=== PATIENT | male | born 1985 | race Caucasian/White ===

== ENCOUNTER → 2017-02-26 | Outpatient (CLI) | payer MEDICAID ==
--- NOTE | 2017-02-27 07:04 | US ---
EXAMINATION TYPE: US scrotum with doppler. Grayscale and color Doppler Duplex imaging performed of t he scrotum. DATE OF EXAM: 02/26/2017 COMPARISON: NONE CLINICAL HISTORY: E29.9 Testicular dysfunction, unspecified. Infertility, no pain, no swelling EXAM MEASUREMENTS: TESTICLES: Right Testicle: 5.8 x 3.4 x 2.8 cm Left Testicle: 5.9 x 3.7 x 3.1 cm EPIDIDYMIS HEAD: Right Epididymis: 1.5 cm, 1.1cm cyst with internal mobile debris Left Epididymis: 1.0 cm Doppler performed to assess for testicular vascularity; good bilateral color flow and waveforms are s een. There is no evidence of testicular torsion. Presence of hydroceles: no Presence of varicoceles: no IMPRESSION: Small left epididymal cyst, otherwise unremarkable scrotal ultrasound.
== END | disposition home or self-care (01) ==
LOC: RADUSWWP 15:28
PROVIDERS: ATTEND Obstetrics & Gynecology Reproductive Endocrinology
DX: N50.3 Cyst of epididymis (principal)
CPT/HCPCS: 76870; 93975

== ENCOUNTER 2020-01-10 22:50 | Observation (INO) | payer MEDICAID ==
[2020-01-10 23:05] LABS: Appearance,Urine Clear (Clear); Bilirubin,Urine Negative (Negative); Blood,Urine Negative (Negative); Color,Urine Light Yellow; Glucose,Urine (UA) Negative (Negative); Ketones,Urine Negative (Negative); Leukocyte Esterase,Urine Negative (Negative); Mucus,Urine Rare /hpf; Nitrite,Urine Negative (Negative); PH, Urine 6.5 (5.0-8.0); Protein,Urine 1+ (Negative); Specific Gravity,Urine 1.016 (1.001-1.035); Squamous Epithelial Cell,Urine <1 /hpf (0-4); Urobilinogen,Urine <2.0 mg/dL (<2.0); WBC,Urine 1 /hpf (0-5)
[2020-01-10 23:32] LABS: Basophils % (A) 0 %; Eosinophils # (A) 0.3 k/uL (0-0.7); Eosinophils % (A) 3 %; HCT 44.5 % (39.0-53.0); HGB 15.2 gm/dL (13.0-17.5); Lymphocytes # (A) 1.6 k/uL (1.0-4.8); Lymphocytes % (A) 13 %; MCHC 34.2 g/dL (31.0-37.0); MCV 87.7 fL (80.0-100.0); Mean Platelet Volume 8.3; Monocytes # (A) 0.8 k/uL (0-1.0); Monocytes % (A) 6 %; Neutrophils # (A) 9.9 k/uL (1.3-7.7); Neutrophils % (A) 78 %; Platelet Count 200 k/uL (150-450); RBC 5.07 m/uL (4.30-5.90); RDW 11.7 % (11.5-15.5); WBC 12.7 k/uL (3.8-10.6)
[2020-01-10] MEDS ORDERED: MORPHINE SULFATE 4 MG/ML SYRINGE IVP STA (23:32)
[2020-01-10 23:44] LABS: ALT 89 U/L (4-49); AST 37 U/L (17-59); African American GFR (CKD) >90 (>60 ml/min/1.73 sqM); Albumin 4.8 g/dL (3.5-5.0); Alkaline Phosphatase 80 U/L (38-126); Amylase 85 U/L (30-110); Anion Gap 8 mmol/L; Blood Urea Nitrogen 19 mg/dL (9-20); C Reactive Protein 12.6 mg/L (<10.0); Calcium 9.8 mg/dL (8.4-10.2); Carbon Dioxide 26 mmol/L (22-30); Chloride 102 mmol/L (98-107); Glucose 114 mg/dL (74-99); Non-African American GFR(CKD) 88 (>60 ml/min/1.73 sqM); Sodium 136 mmol/L (137-145); Total Bilirubin 1.3 mg/dL (0.2-1.3); Total Protein 7.9 g/dL (6.3-8.2)
[2020-01-10] MEDS ORDERED: ONDANSETRON 4 MG/2 ML VIAL IVP STA (23:44)
--- NOTE | 2020-01-11 00:24 | ED ---
Abdominal Pain HPI - General Chief Complaint: Abdominal Pain Stated Complaint: Abdominal Pain Time Seen by Provider: 01/10/20 23:06 Source: patient Mode of arrival: ambulatory Limitations: no limitations - History of Present Illness Initial Comments: Pj is a relatively healthy 34-year-old male who presents the ER today for evaluation of severe right lower quadrant abdominal pain. Patient reports he woke this morning with some vague abdominal pain he thought initially that it was hunger pains but he didn't feel like eating or having appetite. He reports a by lunch time the pain had worsened and moved to the right lower quadrant. Pain became unbearable by the end of the day. Patient had loss of appetite, discomfort with any movement, discomfort with movement of the leg or palpation of the abdomen. he discussed the symptoms with his who brought him to the ER for evaluation of possible appendicitis. Of note the patient does have a history of left-sided nephrectomy and history of kidney stones the past. - Related Data Previous Rx's Medication Instructions Recorded Albuterol Inhaler (Mhu) [Ventolin 1 - 2 puff INHALATION Q4-6H PRN #1 06/12/15 Hfa Inhaler (Mhu)] inhaler Oseltamivir [Tamiflu] 75 mg PO Q12HR 5 Days cap 06/12/15 predniSONE [Deltasone] 60 mg PO DAILY 5 Days tab 06/12/15 Allergies Allergy/AdvReac Type Severity Reaction Status Date / Time No Known Allergies Allergy Verified 01/10/20 22:54 Review of Systems ROS Statement: Those systems with pertinent positive or pertinent negative responses have been documented in the HPI. ROS Other: All systems not noted in ROS Statement are negative. Past Medical History Additional Past Medical History / Comment(s): LEFT KIDNEY REMOVED. History of Any Multi-Drug Resistant Organisms: None Reported Additional Past Surgical History / Comment(s): LEFT NEPHRECTOMY Past Psychological History: No Psychological Hx Reported Smoking Status: Never smoker Past Alcohol Use History: Occasional Past Drug Use History: None Reported General Exam - General Exam Comments Initial Comments: Physical Exam GENERAL: appears uncomfortable Patient is well-developed and well-nourished. Patient is nontoxic and well-hydrated and is in no distress. HENT: Normocephalic, Atraumatic. EYES: PERRL, EOMI PULMONARY: Unlabored respirations. No audible rales rhonchi or wheezing was noted. CARDIOVASCULAR: There is a regular rate and rhythm without any murmurs gallops or rubs. ABDOMEN: soft, severe tenderness to palpation of the right lower quadrant, positive Rovsing sign, rebound noted in the right lower quadrant SKIN: Skin is clear with no lesions or rashes and otherwise unremarkable. : Deferred NEUROLOGIC: Patient is alert and oriented x3. Moving all extremities spontaneously MUSCULOSKELETAL: Normal extremities with adequate strength and full range of motion. No lower e xtremity swelling or edema. No calf tenderness. PSYCHIATRIC: Normal psychiatric evaluation. Limitations: no limitations Course Vital Signs 01/10/20 01/11/20 22:52 00:49 Temperature 99.0 F 98.8 F Pulse Rate 95 70 Respiratory 18 20 Rate Blood Pressure 143/93 133/91 O2 Sat by Pulse 99 98 Oximetry Medical Decision Making - Medical Decision Making She was seen and evaluated, history is obtained from patient and at bedside History and physical exam are concerning for an acute appendicitis Labs and CT imaging were obtained Labs reveal leukocytosis with neutrophilia, elevated CRP these again leaned towards acute appendectomy Computed tomography scan was obtained computed tomography scan reveals a early appendicitis Patient care was discussed with Dr. Griffiths who agrees with plan for placing the patient in observation, pain management, nothing by mouth diet plan for surgery in the morning plan was discussed with the patient and the were agreeable - Lab Data Result diagrams: 01/10/20 23:23 01/10/20 23:06 Lab Results 01/10/20 01/10/20 01/10/20 Range/Units 22:58 23:06 23:23 WBC 12.7 H (3.8-10.6) k/uL RBC 5.07 (4.30-5.90) m/uL Hgb 15.2 (13.0-17.5) gm/dL Hct 44.5 (39.0-53.0) % MCV 87.7 (80.0-100.0) fL MCH 30.0 (25.0-35.0) pg MCHC 34.2 (31.0-37.0) g/dL RDW 11.7 (11.5-15.5) % Plt Count 200 (150-450) k/uL Neutrophils % 78 % Lymphocytes % 13 % Monocytes % 6 % Eosinophils % 3 % Basophils % 0 % Neutrophils # 9.9 H (1.3-7.7) k/uL Lymphocytes # 1.6 (1.0-4.8) k/uL Monocytes # 0.8 (0-1.0) k/uL Eosinophils # 0.3 (0-0.7) k/uL Basophils # 0.0 (0-0.2) k/uL Sodium 136 L (137-145) mmol/L Potassium 4.0 (3.5-5.1) mmol/L Chloride 102 (98-107) mmol/L Carbon Dioxide 26 (22-30) mmol/L Anion Gap 8 mmol/L BUN 19 (9-20) mg/dL Creatinine 1.11 (0.66-1.25) mg/dL Est GFR (CKD-EPI)AfAm >90 (>60 ml/min/1.73 sqM) Est GFR (CKD-EPI)NonAf 88 (>60 ml/min/1.73 sqM) Glucose 114 H (74-99) mg/dL Plasma Lactic Acid Demian (0.7-2.0) mmol/L Calcium 9.8 (8.4-10.2) mg/dL Total Bilirubin 1.3 (0.2-1.3) mg/dL AST 37 (17-59) U/L ALT 89 H (4-49) U/L Alkaline Phosphatase 80 (38-126) U/L C-Reactive Protein 12.6 H (<10.0) mg/L Total Protein 7.9 (6.3-8.2) g/dL Albumin 4.8 (3.5-5.0) g/dL Amylase 85 (30-110) U/L Lipase 136 (23-300) U/L Urine Color Light Yellow Urine Appearance Clear (Clear) Urine pH 6.5 (5.0-8.0) Ur Specific [place] 1.016 (1.001-1.035) Urine Protein 1+ H (Negative) Urine Glucose (UA) Negative (Negative) Urine Ketones Negative (Negative) Urine Blood Negative (Negative) Urine Nitrite Negative (Negative) Urine Bilirubin Negative (Negative) Urine Urobilinogen <2.0 (<2.0) mg/dL Ur Leukocyte Esterase Negative (Negative) Urine WBC 1 (0-5) /hpf Ur Squamous Epith Cells <1 (0-4) /hpf Urine Mucus Rare H (None) /hpf 01/10/20 Range/Units 23:23 WBC (3.8-10.6) k/uL RBC (4.30-5.90) m/uL Hgb (13.0-17.5) gm/dL Hct (39.0-53.0) % MCV (80.0-100.0) fL MCH (25.0-35.0) pg MCHC (31.0-37.0) g/dL RDW (11.5-15.5) % Plt Count (150-450) k/uL Neutrophils % % Lymphocytes % % Monocytes % % Eosinophils % % Basophils % % Neutrophils # (1.3-7.7) k/uL Lymphocytes # (1.0-4.8) k/uL Monocytes # (0-1.0) k/uL Eosinophils # (0-0.7) k/uL Basophils # (0-0.2) k/uL Sodium (137-145) mmol/L Potassium (3.5-5.1) mmol/L Chloride (98-107) mmol/L Carbon Dioxide (22-30) mmol/L Anion Gap mmol/L BUN (9-20) mg/dL Creatinine (0.66-1.25) mg/dL Est GFR (CKD-EPI)AfAm (>60 ml/min/1.73 sqM) Est GFR (CKD-EPI)NonAf (>60 ml/min/1.73 sqM) Glucose (74-99) mg/dL Plasma Lactic Acid Demian 1.3 (0.7-2.0) mmol/L Calcium (8.4-10.2) mg/dL Total Bilirubin (0.2-1.3) mg/dL AST (17-59) U/L ALT (4-49) U/L Alkaline Phosphatase (38-126) U/L C-Reactive Protein (<10.0) mg/L Total Protein (6.3-8.2) g/dL Albumin (3.5-5.0) g/dL Amylase (30-110) U/L Lipase (23-300) U/L Urine Color Urine Appearance (Clear) Urine pH (5.0-8.0) Ur Specific [place] (1.001-1.035) Urine Protein (Negative) Urine Glucose (UA) (Negative) Urine Ketones (Negative) Urine Blood (Negative) Urine Nitrite (Negative) Urine Bilirubin (Negative) Urine Urobilinogen (<2.0) mg/dL Ur Leukocyte Esterase (Negative) Urine WBC (0-5) /hpf Ur Squamous Epith Cells (0-4) /hpf Urine Mucus (None) /hpf Disposition Clinical Impression: Acute appendicitis Disposition: ADMITTED IP TO THIS [facility] Condition: Stable Referrals: None,Stated [Primary Care Provider] - 1-2 days
[2020-01-11] MEDS ORDERED: PIPERACILLIN-TAZOBACTAM 3.375 GM in SODIUM CHLORIDE 0.9% 100 ML IVPB ONE (00:30)
--- NOTE | 2020-01-11 00:33 | CT ---
EXAMINATION TYPE: CT abdomen pelvis w con DATE OF EXAM: 01/11/2020 COMPARISON: None HISTORY: RLQ Abd Pain CT DLP: 1167.70 mGycm Automated exposure control for dose reduction was used. CONTRAST: Performed with IV Contrast, patient injected with 80 mL of Isovue 300. There is mild subsegmental atelectasis right lung base. There is no pleural effusion. Heart size is n ormal. There is no pericardial effusion. Liver spleen pancreas stomach gallbladder appear normal. Bile ducts are nondilated. There is no adrenal mass. Left kidney is absent. Right kidneys show satisfactory contrast opacificati on. There is no hydronephrosis. There are clips from left nephrectomy. There is no retroperitoneal ad enopathy. Bladder distends smoothly. There is no inguinal hernia. There is no free fluid in the pelvi s. The appendix measures up to 8.5 mm. I see no surrounding inflammatory changes. There is no mesenteric edema. There is no ascites or free air. There is no bowel obstruction. Lumbar vertebra have normal alignment. Posterior elements are intact. There is no compression fractur e. Bony pelvis is intact. Sacroiliac joints appear normal. Hip joints appear intact. IMPRESSION: There is borderline dilated appendix. This is somewhat suspicious for appendicitis in this patient wi th right lower quadrant pain.
[2020-01-11] MEDS ORDERED: HYDROmorphone 1 MG/ML 1 ML SYRINGE IVP STA (00:39)
[2020-01-11] MEDS ORDERED: MORPHINE SULFATE 4 MG/ML SYRINGE IV PRN (00:48)
[2020-01-11] MEDS ORDERED: NALOXONE 0.4 MG/ML 1 ML VIAL IV PRN (00:48)
[2020-01-11] MEDS ORDERED: ONDANSETRON 4 MG/2 ML VIAL IVP PRN (00:48)
[2020-01-11] MEDS ORDERED: HYDROmorphone 1 MG/ML 1 ML SYRINGE IVP PRN (01:00)
[2020-01-11] MEDS ORDERED: SODIUM CHLORIDE 0.9% 1,000 ML IV SCH (01:00)
[2020-01-11 04:04] VITALS: TEMP 98.3
[2020-01-11] MEDS ORDERED: GLYCOPYRROLATE 0.2 MG/ML 2 ML VIAL ONE (06:05)
[2020-01-11] MEDS ORDERED: PROPOFOL 10 MG/ML 20 ML VIAL IV ONE (06:05)
[2020-01-11] MEDS ORDERED: fentaNYL (PF) 50 MCG/ML 2 ML AMP ONE (06:05)
[2020-01-11] MEDS ORDERED: LIDOCAINE 1% INJ 10MG/ML (20 ML MDV) ONE (06:05)
[2020-01-11] MEDS ORDERED: ONDANSETRON 4 MG/2 ML VIAL ONE (06:05)
[2020-01-11] MEDS ORDERED: SUCCINYLCHOLINE CHLORIDE 100 MG/5 ML SYR IV ONE (06:05)
[2020-01-11] MEDS ORDERED: KETOROLAC 15 MG/ML 1 ML VIAL ONE (06:05)
[2020-01-11] MEDS ORDERED: ROCURONIUM BROMIDE 10 MG/ML 5 ML VIAL IV ONE (06:05)
[2020-01-11] MEDS ORDERED: DEXAMETHASONE SOD PHOSPHATE 10 MG/ML 1 ML VIAL ONE (06:05)
[2020-01-11] MEDS ORDERED: MIDAZOLAM 2 MG/2 ML VIAL ONE (06:05)
[2020-01-11] MEDS ORDERED: IV FLUID CONTINUATION 800 ML IV ONE (06:05)
--- NOTE | 2020-01-11 06:07 | P.GSHP ---
History of Present Illness H&P Date: 01/11/20 34-year-old male presents to the emergency department with complaints of abdominal pain, mostly in the suprapubic and right lower quadrant. He states that the pain began approximately 18 hours prior to his arrival to the emergency department. He denied any nausea or vomiting but admitted to lack of appetite. He states he has not had pain like this previously. He denied any febrile episodes. Workup in the emergency department included laboratory work along with imaging. Laboratory work did reveal a leukocytosis of greater than 12,000. CT of the abdomen and pelvis was performed that did show a dilated appendix worrisome for acute appendicitis. Patient is known to have a history of a tr aumatic left nephrectomy in 2004. - Review of Systems All systems: negative Past Medical History Additional Past Medical History / Comment(s): LEFT KIDNEY REMOVED. History of Any Multi-Drug Resistant Organisms: None Reported Additional Past Surgical History / Comment(s): LEFT NEPHRECTOMY Past Psychological History: No Psychological Hx Reported Smoking Status: Never smoker Past Alcohol Use History: Occasional Past Drug Use History: None Reported Medications and Allergies Home Medications Medication Instructions Recorded Confirmed Type Albuterol Inhaler (Mhu) [Ventolin 1 - 2 puff INHALATION Q4-6H PRN #1 06/12/15 R x Hfa Inhaler (Mhu)] inhaler Oseltamivir [Tamiflu] 75 mg PO Q12HR 5 Days cap 06/12/15 Rx predniSONE [Deltasone] 60 mg PO DAILY 5 Days tab 06/12/15 Rx Allergies Allergy/AdvReac Type Severity Reaction Status Date / Time No Known Allergies Allergy Verified 01/10/20 22:54 Surgical - Exam Osteopathic Statement: *. No significant issues noted on an osteopathic structural exam other than those noted in the History and Physical/Consult. Vital Signs Temp Pulse Resp BP Pulse Ox 99.0 F 95 18 143/93 99 01/10/20 22:52 01/10/20 22:52 01/10/20 22:52 01/10/20 22:52 01/10/20 22:52 - General well developed, well nourished, no distress - Eyes PERRL, normal ocular movement - ENT normal nares, normal mucosa, no hearing loss - Neck trachea midline - Respiratory normal respiratory effort - Abdomen Soft, tender to palpation in the suprapubic and right lower quadrant, no rebound, no guarding, nondistended, Left subcostal incision site from previous nephrectomy is well-healed - Psychiatric oriented to time, oriented to person, oriented to place Results - Labs 01/10/20 23:23 01/10/20 23:06 Abnormal Lab Results - Last 24 Hours (Table) 01/10/20 01/10/20 01/10/20 Range/Units 22:58 23:06 23:23 WBC 12.7 H (3.8-10.6) k/uL Neutrophils # 9.9 H (1.3-7.7) k/uL Sodium 136 L (137-145) mmol/L Glucose 114 H (74-99) mg/dL ALT 89 H (4-49) U/L C-Reactive Protein 12.6 H (<10.0) mg/L Urine Protein 1+ H (Negative) Urine Mucus Rare H (None) /hpf Diabetes panel 01/10/20 Range/Units 23:06 Sodium 136 L (137-145) mmol/L Potassium 4.0 (3.5-5.1) mmol/L Chloride 102 (98-107) mmol/L Carbon Dioxide 26 (22-30) mmol/L BUN 19 (9-20) mg/dL Creatinine 1.11 (0.66-1.25) mg/dL Glucose 114 H (74-99) mg/dL Calcium 9.8 (8.4-10.2) mg/dL AST 37 (17-59) U/L ALT 89 H (4-49) U/L Alkaline Phosphatase 80 (38-126) U/L Total Protein 7.9 (6.3-8.2) g/dL Albumin 4.8 (3.5-5.0) g/dL Calcium panel 01/10/20 Range/Units 23:06 Calcium 9.8 (8.4-10.2) mg/dL Albumin 4.8 (3.5-5.0) g/dL Pituitary panel 01/10/20 Range/Units 23:06 Sodium 136 L (137-145) mmol/L Potassium 4.0 (3.5-5.1) mmol/L Chloride 102 (98-107) mmol/L Carbon Dioxide 26 (22-30) mmol/L BUN 19 (9-20) mg/dL Creatinine 1.11 (0.66-1.25) mg/dL Glucose 114 H (74-99) mg/dL Calcium 9.8 (8.4-10.2) mg/dL Adrenal panel 01/10/20 Range/Units 23:06 Sodium 136 L (137-145) mmol/L Potassium 4.0 (3.5-5.1) mmol/L Chloride 102 (98-107) mmol/L Carbon Dioxide 26 (22-30) mmol/L BUN 19 (9-20) mg/dL Creatinine 1.11 (0.66-1.25) mg/dL Glucose 114 H (74-99) mg/dL Calcium 9.8 (8.4-10.2) mg/dL Total Bilirubin 1.3 (0.2-1.3) mg/dL AST 37 (17-59) U/L ALT 89 H (4-49) U/L Alkaline Phosphatase 80 (38-126) U/L Total Protein 7.9 (6.3-8.2) g/dL Albumin 4.8 (3.5-5.0) g/dL Assessment and Plan (1) Acute appendicitis Narrative/Plan: 34-year-old male with presentation concerning for acute appendicitis. He was started on IV antibiotics by the emergency department. He was kept nothing by mouth. Based on clinical findings, we will plan for laparoscopic appendectomy. Risks, benefits and alternatives were provided to the patient. He did provide consent prior to attending the operating suite. Further recommendations to be made after procedure. Current Visit: Yes Status: Acute Code(s): K35.80 - UNSPECIFIED ACUTE APPENDICITIS SNOMED Code(s): 17141884
[2020-01-11] MEDS ORDERED: LIDOCAINE 1%-EPI 1:100,000 20 ML VIAL SQ ONE ×2 (06:30→06:42)
--- NOTE | 2020-01-11 06:50 | P.OP ---
Date of Procedure: 01/11/20 Preoperative Diagnosis: Acute appendicitis Postoperative Diagnosis: Acute appendicitis Procedure(s) Performed: Laparoscopic appendectomy Anesthesia: HESHAM Surgeon: Yara Griffiths Pathology: other (Appendix) Condition: stable Disposition: observation Indications for Procedure: 34-year-old male presented to the emergency department with complaint of right lower quadrant abdominal pain. On workup, he was found to have acute appendicitis. Secondary to this, plan is for laparoscopic appendectomy. The p atient was explained the risks, benefits and alternatives to the procedure and did provide consent prior to attending the operating suite. Operative Findings: Inflamed and dilated appendix with surrounding exudate Description of Procedure: The patient was brought into the operating suite and placed in supine position on the operating table. Sedation was provided by anesthesia and the patient underwent endotracheal intubation. The patient was then prepped and draped in regular sterile fashion. A super umbilical incision was made. Dissection was carried to the fascia and the fascia was incised. The abdomen was then entered with a 12 mm trocar pneumoperitoneum was achieved. 2 additional 5 mm ports were then placed. One was placed in the suprapubic region and one was placed in the left lower quadrant. The patient was then positioned appropriately. The appendix was clearly visualized and grasped and elevated. The appendix was not ed to be dilated and mildly inflamed. Exudate was noted along the appendix. A window was then created between the mesoappendix and the appendix at the base of the appendix using a [place] dissector. The appendix was then dissected free from the mesoappendix using LigaSure device. A stapler device was fired across the base of the appendix. Hemostasis was noted to be maintained. The appendix was then placed in an Endo Catch bag and removed from the abdomen. Irrigation was then placed in the right lower quadrant and suctioned. Hemostasis continued to be maintained. The 12 mm trocar site fascia was then closed under direct visualization using a Parth-Arturo device and an 0 Vicryl suture. Pneumoperitoneum was released and ports were removed from the abdomen. All skin incisions were closed with 4-0 Vicryl subcuticular suture. Sterile dressing was applied. The patient was awakened in the operating suite and taken to postanesthesia care unit in stable condition.
[2020-01-11] MEDS ORDERED: PIPERACILLIN-TAZOBACTAM 3.375 GM in SODIUM CHLORIDE 0.9% 100 ML IVPB SCH (08:00)
[2020-01-11] MEDS: HYDROmorphone 1 MG/ML 1 ML SYRINGE IVP PRN ×2 (08:11→08:24)
[2020-01-11] MEDS ORDERED: ONDANSETRON 4 MG/2 ML VIAL IVP ONE (08:20)
[2020-01-11] MEDS ORDERED: SODIUM CHLORIDE 0.9% 1,000 ML IV ONE ×2 (08:34→11:58)
[2020-01-11] MEDS ORDERED: HYDROcodone/APAP 5-325MG 1 EACH TAB ONE (09:14)
[2020-01-11] MEDS ORDERED: HYDROcodone/APAP 5-325MG 1 EACH TAB PO ONE (09:18)
[2020-01-11] MEDS ORDERED: METOCLOPRAMIDE 5 MG/ML 2 ML VIAL IVP ONE (09:32)
[2020-01-11 10:35] VITALS: RESP 18
[2020-01-11] MEDS ORDERED: KETOROLAC 15 MG/ML 1 ML VIAL IVP SCH (12:00)
[2020-01-11 12:08] VITALS: BP 156/79; PULSE 86
--- NOTE | 2020-01-11 12:25 | P.DS ---
Providers Date of admission: 01/11/20 00:49 Attending physician: Yara Griffiths DO Primary care physician: Stated None - Discharge Diagnosis(es) (1) Acute appendicitis Current Visit: Yes Status: Acute Hospital Course: 34-year-old male presented to the emergency department with complaints of right lower quadrant pain. On workup, he was found to have acute appendicitis. Patient was taken to the operating room for laparoscopic appendectomy. Postoperatively, the patient was observed and the postanesthesia care unit. He was observed for approximately 6 hours after surgery. I was informed that there were no beds available for admission at this time. On reevaluation, patient was noted to be surgically stable. He had urinated post procedure. He had multiple glasses of water and soft food. He denied any nausea. His pain was well- controlled. He was informed about the lack of inpatient beds and preferred discharge rather than staying in the postanesthesia care unit. He is noted to be surgically stable for discharge, with oral antibiotics for home. Procedures: Laparoscopic appendectomy Patient Condition at Discharge: Stable Plan - Discharge Summary New Discharge Prescriptions: New Ciprofloxacin HCl [Cipro] 500 mg PO Q12HR 5 Days #10 tab metroNIDAZOLE [Flagyl] 500 mg PO TID 5 Days #15 tab HYDROcodone/APAP 5-325MG [Addison 5-325] 1 tab PO Q6HR PRN 3 Days #12 tab PRN Reason: Pain Continue Albuterol Inhaler (Mhu) [Ventolin Hfa Inhaler (Mhu)] 1 - 2 puff INHALATION Q4-6H PRN #1 inhaler PRN Reason: Cough Discontinued Oseltamivir [Tamiflu] 75 mg PO Q12HR 5 Days cap predniSONE [Deltasone] 60 mg PO DAILY 5 Days tab Discharge Medication List Albuterol Inhaler (Mhu) [Ventolin Hfa Inhaler (Mhu)] 1 - 2 puff INHALATION Q4-6H PRN #1 inhaler 06/12/15 [Rx] Ciprofloxacin HCl [Cipro] 500 mg PO Q12HR 5 Days #10 tab 01/11/20 [Rx] HYDROcodone/APAP 5-325MG [Addison 5-325] 1 tab PO Q6HR PRN 3 Days #12 tab 01/11/20 [Rx] metroNIDAZOLE [Flagyl] 500 mg PO TID 5 Days #15 tab 01/11/20 [Rx] Follow up Appointment(s)/Referral(s): None,Stated [Primary Care Provider] - 1-2 days Yara Griffiths DO [Emergency Provider] - 2 Weeks Patient Instructions/Handouts: *Surgery [facility] - (Anesthesia) Discharge Instructions Outpatient Surgery, Laparoscopic Appendectomy (DC) Activity/Diet/Wound Care/Special Instructions: Okay to shower starting 01/12/2020 Do not scrub on incision sites No lifting greater than 5 [address] while on narcotic pain medication Discharge Disposition: HOME SELF-CARE
== END 2020-01-11 12:46 | disposition home or self-care (01) ==
LOC: EC 22:50 → 1SOBS 01-11 00:49
PROVIDERS: ADMIT Surgery; ATTEND Surgery
DX: K35.80 Unspecified acute appendicitis (principal); Z90.5 Acquired absence of kidney; Z87.442 Personal history of urinary calculi
CPT/HCPCS: 44970; 99285; 36415; 88304; 80053; 82150; 83605; 83690; 85025; 86140; 81001; 74177; G0378; J2543; J2250; J2270; J1100; J2765; J2405 ×2; J2001; J3010; J1170; J1885; J0330; J2704; Q9967

== ENCOUNTER → 2020-03-30 | Outpatient (CLI) | payer MEDICAID | END | disposition home or self-care (01) | LOC: LABMAIN 18:55 | PROVIDERS: ATTEND Emergency Medicine | DX: R50.9 Fever, unspecified (principal) | CPT/HCPCS: 87635 ==

== ENCOUNTER → 2020-11-09 | Outpatient (CLI) | payer MEDICAID ==
--- NOTE | 2020-11-09 21:56 | XR ---
Result: Clinical History: Pain and swelling. Comparison: None available. Technique: 3 views of the right hand. Findings: There is nondisplaced fracture of the third metacarpal proximal shaft. The joint spaces are preserved . There is no definite radiopaque foreign body seen. Impression: Third metacarpal fracture.
== END | disposition home or self-care (01) ==
LOC: RADXRMAIN 21:04
PROVIDERS: ATTEND Emergency Medicine
DX: S62.302A Unspecified fracture of third metacarpal bone, right hand, initial encounter for closed fracture (principal)

== ENCOUNTER 2021-03-21 16:18 | Observation (INO) | payer MEDICAID ==
[2021-03-21] MEDS ORDERED: HYDROmorphone 0.5 MG/0.5 ML SYRINGE IVP STA (16:32)
[2021-03-21 16:37] LABS: Basophils % (A) 1 %; Eosinophils # (A) 0.2 k/uL (0-0.7); Eosinophils % (A) 3 %; HCT 46.3 % (39.0-53.0); HGB 16.3 gm/dL (13.0-17.5); Lymphocytes # (A) 2.1 k/uL (1.0-4.8); Lymphocytes % (A) 24 %; MCH 31.3 pg (25.0-35.0); MCHC 35.2 g/dL (31.0-37.0); MCV 88.9 fL (80.0-100.0); Mean Platelet Volume 8.5; Monocytes # (A) 0.6 k/uL (0-1.0); Monocytes % (A) 7 %; Neutrophils # (A) 5.4 k/uL (1.3-7.7); Neutrophils % (A) 64 %; Platelet Count 209 k/uL (150-450); RDW 11.6 % (11.5-15.5); WBC 8.4 k/uL (3.8-10.6)
--- NOTE | 2021-03-21 16:44 | ED ---
General Adult HPI - General Chief complaint: Chest Pain Stated complaint: Chest Pain Time Seen by Provider: 03/21/21 16:19 Source: patient, RN notes reviewed, old records reviewed Mode of arrival: wheelchair Limitations: no limitations - History of Present Illness Initial comments: 36-year-old male presents for evaluation of left-sided chest pain. This was severe in onset. Radiated through to his back. Is worse with deep breathing. Mild associated dyspnea. Patient had been in his usual state of health without complaint. This began suddenly while at rest. No previous history of CAD. No history of DVT or PE. No history of pneumothorax. No fever or cough. No abdominal pain. No vomiting. - Related Data Home Medications Medication Instructions Recorded Confirmed Ibuprofen [Motrin Ib] 800 mg PO Q8H PRN 03/21/21 03/21/21 Allergies Allergy/AdvReac Type Severity Reaction Status Date / Time No Known Allergies Allergy Verified 03/21/21 17:51 Review of Systems ROS Statement: Those systems with pertinent positive or pertinent negative responses have been documented in the HPI. ROS Other: All systems not noted in ROS Statement are negative. Past Medical History Past Medical History: No Reported History Additional Past Medical History / Comment(s): LEFT KIDNEY REMOVED. History of Any Multi-Drug Resistant Organisms: None Reported Past Surgical History: No Surgical Hx Reported Additional Past Surgical History / Comment(s): LEFT NEPHRECTOMY Past Psychological History: No Psychological Hx Reported Smoking Status: Never smoker Past Alcohol Use History: Occasional Past Drug Use History: None Reported General Exam Limitations: no limitations General appearance: alert Head exam: Present: atraumatic, normocephalic Eye exam: Present: normal appearance, PERRL ENT exam: Present: normal exam Neck exam: Present: normal inspection. Absent: tenderness, meningismus Respiratory exam: Present: normal lung sounds bilaterally. Absent: respiratory distress, wheezes, rales, rhonchi Cardiovascular Exam: Present: regular rate, normal rhythm GI/Abdominal exam: Present: soft. Absent: distended, tenderness, guarding Extremities exam: Present: normal inspection, normal capillary refill Neurological exam: Present: alert, oriented X3, CN II-XII intact. Absent: motor sensory deficit Psychiatric exam: Present: normal affect, normal mood Skin exam: Present: warm, dry, intact. Absent: cyanosis, diaphoretic Course Vital Signs 03/21/21 03/21/21 16:19 17:04 Temperature 98.1 F Pulse Rate 88 92 Respiratory 20 16 Rate Blood Pressure 131/96 156/111 O2 Sat by Pulse 99 97 Oximetry EKG Findings - EKG Comments: EKG Findings:: First EKG at 1626, normal sinus rhythm, rate of 72, MO interval 144, QRS duration 84, QTC 409, nonspecific T-wave abnormality in the lateral precordial leads as well as inferior leads no ST segment elevation. Repeat EKG at 1640, normal sinus rhythm, rate of 79, MO interval 142, QRS duration 82, QTC 417, persistent T-wave abnormalities without change. ST segment elevation. Medical Decision Making - Medical Decision Making 36-year-old male presenting with severe left-sided chest pain radiating to the back. This was sudden in onset. Patient is in sinus rhythm with T-wave flattening and inversion in the lateral precordial and inferior leads. No ST segment elevation. Chest x-ray is clear, no pneumothorax and no large focal pneumonia. I did perform CT angiography of the aorta to rule out dissection. T here is no acute findings on CT angiography, no pulmonary embolism. Although his pain is pleuritic in nature, given the severity and T-wave abnormality on EKG. He will be kept in observation for serial cardiac enzymes. Case discussed with Dr. Gan who will admit. Cardiology placed on consult. - Lab Data Result diagrams: 03/21/21 16:30 03/21/21 16:30 Lab Results 03/21/21 03/21/21 03/21/21 Range/Units 16:30 16:30 16:30 WBC 8.4 (3.8-10.6) k/uL RBC 5.20 (4.30-5.90) m/uL Hgb 16.3 (13.0-17.5) gm/dL Hct 46.3 (39.0-53.0) % MCV 88.9 (80.0-100.0) fL MCH 31.3 (25.0-35.0) pg MCHC 35.2 (31.0-37.0) g/dL RDW 11.6 (11.5-15.5) % Plt Count 209 (150-450) k/uL MPV 8.5 Neutrophils % 64 % Lymphocytes % 24 % Monocytes % 7 % Eosinophils % 3 % Basophils % 1 % Neutrophils # 5.4 (1.3-7.7) k/uL Lymphocytes # 2.1 (1.0-4.8) k/uL Monocytes # 0.6 (0-1.0) k/uL Eosinophils # 0.2 (0-0.7) k/uL Basophils # 0.0 (0-0.2) k/uL PT 10.1 (9.0-12.0) sec INR 0.9 (<1.2) APTT 24.7 (22.0-30.0) sec Sodium 138 (137-145) mmol/L Potassium 4.6 (3.5-5.1) mmol/L Chloride 99 (98-107) mmol/L Carbon Dioxide 28 (22-30) mmol/L Anion Gap 11 mmol/L BUN 24 H (9-20) mg/dL Creatinine 1.30 H (0.66-1.25) mg/dL Est GFR (CKD-EPI)AfAm 83 (>60 ml/min/1.73 sqM) Est GFR (CKD-EPI)NonAf 71 (>60 ml/min/1.73 sqM) Glucose 94 (74-99) mg/dL Calcium 10.0 (8.4-10.2) mg/dL Magnesium 1.9 (1.6-2.3) mg/dL Total Bilirubin 1.9 H (0.2-1.3) mg/dL AST 47 (17-59) U/L ALT 83 H (4-49) U/L Alkaline Phosphatase 65 (38-126) U/L Troponin I (0.000-0.034) ng/mL Total Protein 8.4 H (6.3-8.2) g/dL Albumin 4.9 (3.5-5.0) g/dL 03/21/21 03/21/21 Range/Units 16:30 17:59 WBC (3.8-10.6) k/uL RBC (4.30-5.90) m/uL Hgb (13.0-17.5) gm/dL Hct (39.0-53.0) % MCV (80.0-100.0) fL MCH (25.0-35.0) pg MCHC (31.0-37.0) g/dL RDW (11.5-15.5) % Plt Count (150-450) k/uL MPV Neutrophils % % Lymphocytes % % Monocytes % % Eosinophils % % Basophils % % Neutrophils # (1.3-7.7) k/uL Lymphocytes # (1.0-4.8) k/uL Monocytes # (0-1.0) k/uL Eosinophils # (0-0.7) k/uL Basophils # (0-0.2) k/uL PT (9.0-12.0) sec INR (<1.2) APTT (22.0-30.0) sec Sodium (137-145) mmol/L Potassium (3.5-5.1) mmol/L Chloride (98-107) mmol/L Carbon Dioxide (22-30) mmol/L Anion Gap mmol/L BUN (9-20) mg/dL Creatinine (0.66-1.25) mg/dL Est GFR (CKD-EPI)AfAm (>60 ml/min/1.73 sqM) Est GFR (CKD-EPI)NonAf (>60 ml/min/1.73 sqM) Glucose (74-99) mg/dL Calcium (8.4-10.2) mg/dL Magnesium (1.6-2.3) mg/dL Total Bilirubin (0.2-1.3) mg/dL AST (17-59) U/L ALT (4-49) U/L Alkaline Phosphatase (38-126) U/L Troponin I <0.012 <0.012 (0.000-0.034) ng/mL Total Protein (6.3-8.2) g/dL Albumin (3.5-5.0) g/dL Disposition Clinical Impression: Chest pain Disposition: ADMITTED IP TO THIS [facility] Condition: Stable Is patient prescribed a controlled substance at d/c from ED?: No Referrals: Wallace Arrington DO [Primary Care Provider] - 1-2 days Decision to Admit Reason: Admit from EC Decision Date: 03/21/21 Decision Time: 18:44
[2021-03-21 16:45] LABS: Potassium 4.6 mmol/L (3.5-5.1)
[2021-03-21 16:46] LABS: Albumin 4.9 g/dL (3.5-5.0); Magnesium 1.9 mg/dL (1.6-2.3); Total Bilirubin 1.9 mg/dL (0.2-1.3); Total Protein 8.4 g/dL (6.3-8.2)
[2021-03-21 16:51] LABS: INR 0.9 (<1.2); Partial Thromboplastin Time 24.7 sec (22.0-30.0); Prothrombin Time 10.1 sec (9.0-12.0)
--- NOTE | 2021-03-21 16:51 | XR ---
EXAMINATION TYPE: XR chest 1V portable DATE OF EXAM: 03/21/2021 COMPARISON: Chest x-ray 06/12/2015 HISTORY: Chest pain TECHNIQUE: Single frontal view of the chest is obtained. FINDINGS: There is no focal air space opacity, pleural effusion, or pneumothorax seen. The cardiac silhouette size is within normal limits. The osseous structures are intact. IMPRESSION: No acute process.
[2021-03-21] MEDS ORDERED: SODIUM CHLORIDE 0.9% 1,000 ML IV ONE (16:58)
[2021-03-21] MEDS ORDERED: HYDROmorphone 1 MG/ML 1 ML SYRINGE IVP STA (16:59)
--- NOTE | 2021-03-21 17:40 | CT ---
EXAMINATION TYPE: CT angio thor/abd pel aorta DATE OF EXAM: 03/21/2021 COMPARISON: None HISTORY: Severe chest pains CT DLP: 1852.8 mGycm Automated exposure control for dose reduction was used. CONTRAST: Performed without and with IV Contrast, patient injected with 80 mL of Isovue 370. Images obtained from the thoracic inlet to the floor the pelvis without and subsequently with IV cont rast. There are 3-D post processed images. The lungs are clear of consolidation. There is no pleural effusion or pneumothorax. Heart size is nor mal. There is no pericardial effusion. There are no hilar masses. Thoracic aorta is intact. There is no aneurysm or dissection. The ascending aorta measures 3.5 cm. Liver spleen pancreas gallbladder stomach appear intact. The bile ducts are not dilated. There is no adrenal mass. There is left nephrectomy. There are surgical clips. Right kidneys show sat isfactory contrast opacification. There is no hydronephrosis. Bladder distends smoothly. There is no inguinal hernia. There is no free fluid in the pelvis. There is no mesenteric edema. There is no asci jessica or free air. There is no bowel obstruction. There are clips apparently from appendectomy. Appendi x not seen. There is normal contrast opacification of the thoracic and abdominal aorta. There is no aneurysm or d issection. There is normal contrast opacification of the pulmonary arteries. There is arterial flow i n the celiac artery and superior mesenteric artery. There is arterial flow in the right renal artery. There is arterial flow in the iliac arteries. There is no evidence of hemodynamic stenosis. The thoracic and lumbar vertebra appear intact. There is no compression fracture. Sternum is intact. The bony pelvis is intact. Hip joints are intact. IMPRESSION: Negative CT angiogram of the chest abdomen pelvis. No evidence of arterial aneurysm or dissection. No evidence of hemodynamic stenosis. No evidence of pulmonary embolism.
[2021-03-21] MEDS ORDERED: ASPIRIN 325 MG TAB PO STA (17:57)
[2021-03-21] MEDS ORDERED: KETOROLAC 15 MG/ML 1 ML VIAL IVP STA (17:58)
[2021-03-21] MEDS ORDERED: KETOROLAC 15 MG/ML 1 ML VIAL IVP PRN (18:41)
[2021-03-21] MEDS ORDERED: ACETAMINOPHEN TAB 325 MG TAB PO PRN (18:41)
[2021-03-21] MEDS ORDERED: NALOXONE 0.4 MG/ML 1 ML VIAL IV PRN (18:41)
[2021-03-21] MEDS: SODIUM CHLORIDE 0.9% 1,000 ML IV SCH (19:55)
[2021-03-21] MEDS: HYDROmorphone 0.5 MG/0.5 ML SYRINGE IVP PRN ×2 (19:55→23:27)
[2021-03-21 20:04] VITALS: RESP 18
[2021-03-22] MEDS: HYDROmorphone 0.5 MG/0.5 ML SYRINGE IVP PRN ×2 (08:00→12:09)
[2021-03-22] MEDS: SODIUM CHLORIDE 0.9% 1,000 ML IV SCH (09:39)
[2021-03-22 10:18] LABS: African American GFR (CKD) >90 (>60 ml/min/1.73 sqM); Anion Gap 9 mmol/L; Blood Urea Nitrogen 20 mg/dL (9-20); Calcium 9.5 mg/dL (8.4-10.2); Carbon Dioxide 27 mmol/L (22-30); Chloride 102 mmol/L (98-107); Glucose 99 mg/dL (74-99); Non-African American GFR(CKD) 79 (>60 ml/min/1.73 sqM); Sodium 138 mmol/L (137-145)
[2021-03-22 10:22] LABS: Potassium 4.7 mmol/L (3.5-5.1)
--- NOTE | 2021-03-22 10:54 | P.CRDCN ---
History of Present Illness History of present illness: HISTORY OF PRESENTING ILLNESS This is a pleasant 36-year-old male with no significant past medical history. 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 We have been asked to see in consultation f or chest pain. Patient presented to the emergency department with complaints of left-sided chest pain. He states that yesterday he was at work, currently works in a warehouse, he noted left-sided chest pain moving to his back. He states this felt as if a belt was around his chest/ribs. He describes the chest discomfort as tightness. it is aggravated by taking a deep breath and when he moves from side to side. He denies any injury. he did have some relief from IV Dilaudid and IV Toradol in the emergency department. His chest pain is reproducible with palpation to the left chest, he does describe the area as sore with palpation. He denies palpitations, shortness of breath, lower extremity edema, fatigue, weakness, lightheadedness, syncope, or near syncope. He denies fever, cough, chills, orthopnea or PND. He denies history of hypertension, CAD, OR, Stroke, Diabetes. Denies tobacco use. Occasionally drinks alcohol. Denies family history of CAD. Mother has history of hypertension. On admission patient found to have serum creatinine 1.3, patient was given IV fluids and his creatinine improved to 1.19. DIAGNOSTICS EKG reveals sinus rhythm, heart rate 79,, T wave inversions in inferior leads, no signs of acute ischemia, nonspecific T wave abnormalities. No prior EKG to compare Telemetry tracings indicate sinus mechanism HR 60s Chest xray no acute cardiopulmonary process. Thoracic CT with no acute findings. Laboratory reviewed, CBC unremarkable, sodium 138, potassium 4.7, BUN 20, serum creatinine 1.19, troponin negative 4, covid-19 PCR negative Current home medications include none REVIEW OF SYSTEMS At the time of my exam: CONSTITUTIONAL: Denies fever or chills. CARDIOVASCULAR: + chest pain, Denies shortness of breath, orthopnea, PND or palpitations. RESPIRATORY: Denies cough. GASTROINTESTINAL: Denies abdominal pain, diarrhea, constipation, nausea or vomiting. MUSCULOSKELETAL: Denies myalgias. NEUROLOGIC: Denies numbness, tingling, headache or weakness. ENDOCRINE: Denies fatigue, weight change, polydipsia or polyurina. GENITOURINARY: Denies burning, hematuria or urgency with micturation. HEMATOLOGIC: Denies history of anemia or bleeding. PHYSICAL EXAMINATION Blood pressure 132/80, heart rate 69, afebrile, saturations greater than 92% on room air CONSTITUTIONAL: No apparent distress. HEENT: Head is normocephalic. Pupils are equal, round. Sclerae anicteric. Mucous membranes of the mouth are moist. No JVD. No carotid bruit. CHEST EXAMINATION: Lungs are clear to auscultation. There is chest wall tenderness noted on palpation AND with deep breathing. HEART EXAMINATION: Regular rate and rhythm. S1, S2 heard. No murmurs, gallops or rub. ABDOMEN: Soft, nontender. Positive bowel sounds. EXTREMITIES: 2+ peripheral pulses, no lower extremity edema and no calf tenderness. SKIN: warm, dry NEUROLOGIC EXAMINATION: Patient is awake, alert and oriented x3. ASSESSMENT Chest pain, reproducible, appears musculoskeletal etiology Nonspecific EKG abnormalities PLAN An acute coronary event has been ruled out with no EKG evidence of ischemia and negative cardiac enzymes. Obtain 2D echocardiogram and doppler study to assess cardiac structure and func tion. If echocardiogram with no acute findings, no additional workup from a cardiology perspective Thank you kindly for this consultation. Nurse Practitioner note has been reviewed, I agree with a documented findings and plan of care. Patient was seen and examined. Past Medical History Past Medical History: No Reported History Additional Past Medical History / Comment(s): L nephrectomy d/t football injury. History of Any Multi-Drug Resistant Organisms: None Reported Past Surgical History: Adenoidectomy, Appendectomy, Tonsillectomy Additional Past Surgical History / Comment(s): L nephrectomy, lap appy Past Anesthesia/Blood Transfusion Reactions: No Reported Reaction Past Psychological History: No Psychological Hx Reported Additional Psychological History / Comment(s): Pt resides with his spouse and one child. He is independent. Smoking Status: Never smoker Past Alcohol Use History: Occasional Past Drug Use History: None Reported - Past Family History Father Family Medical History: Cancer Additional Family Medical History / Comment(s): Prostate cancer. Paternal grandfather had prostate cancer. Mother Family Medical History: Hypertension Medications and Allergies Home Medications Medication Instructions Recorded Confirmed Type Ibuprofen [Motrin Ib] 800 mg PO Q8H PRN 03/21/21 03/21/21 History Allergies Allergy/AdvReac Type Severity Reaction Status Date / Time No Known Allergies Allergy Verified 03/21/21 17:51 Physical Exam Vitals: Vital Signs Temp Pulse Resp BP Pulse Ox 03/22/21 06:56 97.9 F 69 18 132/80 98 03/22/21 02:00 75 18 132/91 96 03/21/21 23:00 74 18 132/91 98 03/21/21 20:00 88 18 125/95 97 03/21/21 17:04 92 16 156/111 97 03/21/21 16:19 98.1 F 88 20 131/96 99 Intake and Output 03/21/21 03/22/21 03/22/21 22:59 06:59 14:59 Other: Weight 102.058 kg 102.058 kg Results 03/21/21 16:30 03/22/21 09:28 Cardiac Enzymes 03/21/21 03/21/21 03/21/21 Range/Units 16:30 16:30 17:59 AST 47 (17-59) U/L Troponin I <0.012 <0.012 (0.000-0.034) ng/mL 03/21/21 03/22/21 Range/Units 21:39 00:00 AST (17-59) U/L Troponin I <0.012 <0.012 (0.000-0.034) ng/mL Coagulation 03/21/21 Range/Units 16:30 PT 10.1 (9.0-12.0) sec APTT 24.7 (22.0-30.0) sec CBC 03/21/21 Range/Units 16:30 WBC 8.4 (3.8-10.6) k/uL RBC 5.20 (4.30-5.90) m/uL Hgb 16.3 (13.0-17.5) gm/dL Hct 46.3 (39.0-53.0) % Plt Count 209 (150-450) k/uL Comprehensive Metabolic Panel 03/21/21 03/22/21 Range/Units 16:30 09:28 Sodium 138 138 (137-145) mmol/L Potassium 4.6 4.7 (3.5-5.1) mmol/L Chloride 99 102 (98-107) mmol/L Carbon Dioxide 28 27 (22-30) mmol/L BUN 24 H 20 (9-20) mg/dL Creatinine 1.30 H 1.19 (0.66-1.25) mg/dL Glucose 94 99 (74-99) mg/dL Calcium 10.0 9.5 (8.4-10.2) mg/dL AST 47 (17-59) U/L ALT 83 H (4-49) U/L Alkaline Phosphatase 65 (38-126) U/L Total Protein 8.4 H (6.3-8.2) g/dL Albumin 4.9 (3.5-5.0) g/dL Current Medications Generic Name Dose Route Start Last Admin Trade Name Freq PRN Reason Stop Dose Admin Acetaminophen 650 mg 03/21/21 18:41 Acetaminophen Tab 325 Mg Tab PO Q6HR PRN Mild Pain or Fever > 100.5 Hydromorphone HCl 0.5 mg 03/21/21 18:41 03/22/21 08:00 Hydromorphone 0.5 Mg/0.5 Ml Syringe IVP 0.5 mg Q3HR PRN Administration Moderate Pain Sodium Chloride 1,000 mls @ 75 mls/hr 03/21/21 18:00 03/22/21 09:39 Saline 0.9% IV 75 mls/hr .[id number] [facility] Administration Ketorolac Tromethamine 15 mg 03/21/21 18:41 Ketorolac 15 Mg/Ml 1 Ml Vial IVP 03/24/21 18:43 Q6HR PRN Moderate Pain Naloxone HCl 0.2 mg 03/21/21 18:41 Naloxone 0.4 Mg/Ml 1 Ml Vial IV Q2M PRN Opioid Reversal Intake and Output 03/21/21 03/22/21 03/22/21 22:59 06:59 14:59 Other: Weight 102.058 kg 102.058 kg Patient Weight 03/23/21 06:59 Weight 102.058 kg 03/21/21 16:30 03/22/21 09:28
[2021-03-22 11:26] VITALS: TEMP 97.7
[2021-03-22 12:11] VITALS: PULSE 57
--- NOTE | 2021-03-22 12:12 | ECHOF ---
Referral Reason:chest pain MEASUREMENTS -------- HEIGHT: 182.9 cm WEIGHT: 102.1 kg BP: 132/80 IVSd: 1.3 cm (0.6 - 1.1) LVIDd: 4.5 cm (3.9 - 5.3) LVPWd: 1.4 cm (0.6 - 1.1) EDV(Teich): 93 ml IVSs: 1.6 cm LVIDs: 3.0 cm LVPWs: 1.5 cm %IVS Thck: 17 % ESV(Teich): 36 ml EF(Teich): 62 % %FS: 33 % SV(Teich): 58 ml RVIDd: 3.5 cm (< 3.3) RA Diam: 5.0 cm LALs A4C: 6.2 cm LAAs A4C: 19.2 cm LAESV A-L A4C: 50 ml LAESV MOD A4C: 44 ml LALs A2C: 4.2 cm LAAs A2C: 12.9 cm LAESV A-L A2C: 34 ml LAESV MOD A2C: 33 ml LAESV(A-L): 50 ml LAESV Index (A-L): 22.46 ml/m Ao Diam: 2.9 cm (2.0 - 3.7) LA Diam: 2.9 cm (2.7 - 3.8) AV Cusp: 2.6 cm (1.5 - 2.6) EPSS: 0.5 cm MV E Phong: 0.77 m/s MV DecT: 255 ms MV Dec Giles: 3.0 m/s MV A Phong: 0.47 m/s MV E/A Ratio: 1.64 MV PHT: 74 ms LVOT Vmax: 0.97 m/s LVOT maxP.78 mmHg AV Vmax: 1.14 m/s AV maxP.20 mmHg TR Vmax: 2.72 m/s TR maxP.56 mmHg RAP: 5.00 mmHg RVSP: 34.56 mmHg MV EF SLOPE: 117.83 mm/s (70 - 150) MV EXCURSION: 29.77 mm (> 18.000) FINDINGS -------- Sinus rhythm. This was a technically adequate study. The left ventricular size is normal. There is mild concentric left ventricular hypertrophy. Overa ll left ventricular systolic function is normal with, an EF between 55 - 60 %. The diastolic fillin g pattern is normal for the age of the patient 7.34. The right ventricle is mildly enlarged. Normal LA size by volume 22+/-6 ml/m2. The right atrium is mildly enlarged. Interatrial and interventricular septum intact. The aortic valve is trileaflet and appears structurally normal. There is no evidence of aortic regu rgitation. There is no evidence of aortic stenosis. No mitral regurgitation. Mild tricuspid regurgitation present. There is no evidence of pulmonary hypertension. The right v entricular systolic pressure, as measured by Doppler, is 34.56mmHg. Trace/mild (physiologic) pulmonic regurgitation. The aortic root size is normal. IVC Not well visulized. There is no pericardial effusion. CONCLUSIONS -------- 1. The left ventricular size is normal. 2. There is mild concentric left ventricular hypertrophy. 3. Overall left ventricular systolic function is normal with, an EF between 55 - 60 %. 4. The diastolic filling pattern is normal for the age of the patient 7.34 5. The right ventricle is mildly enlarged. 6. The right atrium is mildly enlarged. 7. Mild tricuspid regurgitation present. 8. Trace/mild (physiologic) pulmonic regurgitation. RADIOGRAPHY TECHNICIAN: Amie Mcgrath RDCS
--- NOTE | 2021-03-22 14:25 | P.HPIM ---
History of Present Illness H&P Date: 03/22/21 HISTORY AND PHYSICAL AND DISCHARGE SUMMARY: HISTORY OF PRESENT ILLNESS This is a 36-year-old male patient of Dr. Arrington with past medical history of nephrectomy due to football injury. Last hospitalization was in December 2019 under the care of Dr. Griffiths status post laparoscopic appendectomy. Patient developed left-sided chest pain radiating through to his back when he was bending over to get a bottle of water. He states it was a squeezing, worse with deep breathing along with mild dyspnea. Onset of pain was yesterday which was a squeezing type. He states his neck was a little sore today from the pain from his chest yesterday. He denies any numbness or tingling in his arms. He does have pain in the left side of his chest with movement of the left shoulder. No chest wall tenderness. The chest pain is now coming and going and is a nee dle/shooting type pain. Patient was afebrile, heart rate in the 80s and 90s, blood pressure 131/96 and repeat 156/111. EKG was a sinus rhythm with T-wave inversions and no acute ST changes. CBC was unremarkable. Electrolytes normal. BUN 24 and creatinine 1.3. Blood sugar 94. Total bilirubin 1.9. Magnesium 1.9. ALT 83. Troponin negative on 4 draws. Lei virus PCR not detected. Chest x-ray reveals no acute process. CT angiogram of the thorax and abdomen and pelvis revealed negative CT angiogram of the chest abdomen and pelvis. No evidence of arterial aneurysm or dissection. No evidence of hemodynamic stenosis. No evidence of pulmonary embolism. Patient is seen in the emergency center waiting for bed on the observation unit. Blood pressure is now 132/80. He has been seen by cardiology and reviewed echocardiogram and signed off. Echocardiogram reveals EF of 55-60% with mild tricuspid regurgitation, mild concentric left ventricular hypertrophy. Repeat creatinine 1.19 and BUN 20. The patient will be discharged home today in stable condition. He has been advised to follow-up with his PCP regarding thoracic back pain. REVIEW OF SYSTEMS Constitutional: No fever, no chills, no night sweats. No weight change. No weakness, fatigue or lethargy. No daytime sleepiness. EENT: No headache. No blurred vision or double vision, no loss of vision. No loss of Hearing, no ringing in the ears, no dizziness. No nasal drainage or congestion. No epistaxis. No sore throat. Lungs: No shortness of breath, cough, no sputum production. No wheezing. Cardiovascular: Reports severe chest pain, no lower extremity edema. No palpitations. No paroxysmal nocturnal dyspnea. No orthopnea. No lightheadedness or dizziness. No syncopal episodes. Abdominal: No abdominal pain. No nausea, vomiting. No diarrhea. No constipation. No bloody or tarry stools. No loss of appetite. Genitourinary: No dysuria, increased frequency, urgency. No urinary retention. Musculoskeletal: No myalgias. No muscle weakness, no gait dysfunction, no frequent falls. Reports thoracic back pain. No neck pain. Integumentary: No wounds, no lesions. No rash or pruritus. No unusual bruising. No change in hair or nails. Neurologic: No aphasia. No facial droop. No change in mentation. No head injury. No headache. No paralysis. No paresthesia. Psychiatric: No depression. No anxiety. No mood swings. Endocrine: No abnormal blood sugars. No weight change. No excessive sweating or thirst. No cold intolerance. SOCIAL HISTORY Patient is a lifelong nonsmoker, occasional alcohol use, no illicit drug use or marijuana use. Patient lives at home with his . FAMILY HISTORY Mother is alive with history of hypertension. Father is alive with history of prostate cancer. Patient has one sister that 5 years ago from a brain aneurysm. Patient has one son 6 years old with no major medical problems. He does not have any brothers. PHYSICAL EXAMINATION Gen: This is a 36-year-old overweight male. Patient is resting on stretcher and appears to be comfortable and in no acute distress HEENT: Head is atraumatic, normocephalic. Pupils equal, round. Sclerae is anicteric. NECK: Supple. No JVD. No lymphadenopathy. No thyromegaly. LUNGS: Clear to auscultation. No wheezes or rhonchi. No intercostal retractions. HEART: Regular rate and rhythm. No murmur. No chest wall tenderness. BACK: Lipoma to the upper thoracic back area. ABDOMEN: Soft. Bowel sounds are present. No masses. No tenderness. EXTREMITIES: No pedal edema. No calf tenderness. Full range of motion to the left shoulder with pain noted in the left chest. NEUROLOGICAL: Patient is awake, alert and oriented x3. Cranial nerves 2 through 12 are grossly intact. ASSESSMENT AND PLAN 1. Chest pain is musculoskeletal, thoracic back pain. Cardiology consult appreciated. 2. Mild acute kidney injury. Patient is status post 1 L of IV fluids repeat creatinine is normal. 3. History of nephrectomy secondary to a football injury. 4. History of laparoscopic appendectomy. 5. COVID-19 testing negative. Patient has been hospitalized during a pandemic. Patient placed as an observation status. DISCHARGE MEDICATIONS Ibuprofen [Motrin Ib] 800 mg PO Q8H PRN 03/21/21 [History] Acetaminophen Tab [Tylenol] 650 mg PO Q6HR PRN tab 03/22/21 [Rx] Baclofen [Lioresal] 10 mg PO TID #30 tablet 03/22/21 [Rx] Omeprazole [PriLOSEC] 20 mg PO AC-BRKFST #30 cap 03/22/21 [Rx] predniSONE [Deltasone] 40 mg PO DAILY #7 tab 03/22/21 [Rx] DISCHARGE PLAN Home. Greater than 35 minutes was utilized and coordinating patient's discharge. Impression and plan of care have been directed as dictated by the signing physician. Yesy Treadwell nurse practitioner acting as scribe for signing physician. Past Medical History Past Medical History: No Reported History Additional Past Medical History / Comment(s): L nephrectomy d/t football injury. History of Any Multi-Drug Resistant Organisms: None Reported Past Surgical History: Adenoidectomy, Appendectomy, Tonsillectomy Additional Past Surgical History / Comment(s): L nephrectomy, lap appy Past Anesthesia/Blood Transfusion Reactions: No Reported Reaction Past Psychological History: No Psychological Hx Reported Additional Psychological History / Comment(s): Pt resides with his spouse and one child. He is independent. Smoking Status: Never smoker Past Alcohol Use History: Occasional Past Drug Use History: None Reported - Past Family History Father Family Medical History: Cancer Additional Family Medical History / Comment(s): Prostate cancer. Paternal grandfather had prostate cancer. Mother Family Medical History: Hypertension Medications and Allergies Home Medications Medication Instructions Recorded Confirmed Type Ibuprofen [Motrin Ib] 800 mg PO Q8H PRN 03/21/21 03/21/21 History Acetaminophen Tab [Tylenol] 650 mg PO Q6HR PRN tab 03/22/21 Rx Baclofen [Lioresal] 10 mg PO TID #30 tablet 03/22/21 Rx Omeprazole [PriLOSEC] 20 mg PO AC-BRKFST #30 cap 03/22/21 Rx predniSONE [Deltasone] 40 mg PO DAILY #7 tab 03/22/21 Rx Allergies Allergy/AdvReac Type Severity Reaction Status Date / Time No Known Allergies Allergy Verified 03/21/21 17:51 Physical Exam Vitals: Vital Signs Temp Pulse Resp BP Pulse Ox 03/22/21 06:56 97.9 F 69 18 132/80 98 03/22/21 02:00 75 18 132/91 96 03/21/21 23:00 74 18 132/91 98 03/21/21 20:00 88 18 125/95 97 03/21/21 17:04 92 16 156/111 97 03/21/21 16:19 98.1 F 88 20 131/96 99 Intake and Output 03/21/21 03/22/21 03/22/21 22:59 06:59 14:59 Other: Weight 102.058 kg Results CBC & Chem 7: 03/21/21 16:30 03/22/21 09:28 Labs: Abnormal Lab Results - Last 24 Hours (Table) 03/21/21 Range/Units 16:30 BUN 24 H (9-20) mg/dL Creatinine 1.30 H (0.66-1.25) mg/dL Total Bilirubin 1.9 H (0.2-1.3) mg/dL ALT 83 H (4-49) U/L Total Protein 8.4 H (6.3-8.2) g/dL
[2021-03-22 16:18] VITALS: BP 140/82
== END 2021-03-22 16:16 | disposition home or self-care (01) ==
LOC: EC 16:18 → 6NMEDSUR 18:43
PROVIDERS: ADMIT Internal Medicine; ATTEND Internal Medicine
DX: R07.89 Other chest pain (principal); N17.9 Acute kidney failure, unspecified; R94.31 Abnormal electrocardiogram [ECG] [EKG]; M54.6 Pain in thoracic spine; R06.00 Dyspnea, unspecified; I07.1 Rheumatic tricuspid insufficiency; D17.1 Benign lipomatous neoplasm of skin and subcutaneous tissue of trunk; Z20.822 Contact with and (suspected) exposure to COVID-19; Z87.828 Personal history of other (healed) physical injury and trauma; Z90.5 Acquired absence of kidney; Z90.49 Acquired absence of other specified parts of digestive tract; Z98.890 Other specified postprocedural states; Z82.49 Family history of ischemic heart disease and other diseases of the circulatory system; Z80.42 Family history of malignant neoplasm of prostate
CPT/HCPCS: 96376 ×2; 96374; 96375; 99285; 36415; 93005; 93306; 80053; 80048; 83735; 84484 ×2; 85025; 85610; 85730; 87635; 71045; 71275; 74174; G0378 ×2; J1170 ×3; J1885; Q9967

== ENCOUNTER → 2021-05-14 | Outpatient (CLI) | payer MEDICAID ==
--- NOTE | 2021-05-14 16:27 | EST ---
EXERCISE STRESS AGE: 36 SEX: M HT: 6' WT: 228 lbs. PROTOCOL: Dontae STAGE: 4 DURATION OF EXERCISE: 10:34 HEART RATE REST: 73 BLOOD PRESSURE REST: 134/96 MAXIMUM HEART RATE ACHIEVED: 182 MAXIMUM BLOOD PRESSURE: 193/81 85% MPHR: 158 100% MPHR: 186 METS: 12.1 INDICATIONS: Abnormal EKG. CLINICAL INFORMATION: Baseline EKG shows sinus rhythm with inferolateral ST-T wave changes and PVC. Patient exercised on Dontae protocol for a total of 10-1/2 minutes, achieving 12 METS, 98% of predicted maximal heart rate, without chest pain. At peak exercise there was 0.[address]- segment depression noted in the inferolateral leads. CONCLUSIONS: 1. Excellent exercise tolerance. 2. Upsloping ST-segment depression of 0.5 mm in inferolateral leads at peak exercise. ANUEL / LOBON: [id number] /
== END | disposition home or self-care (01) ==
LOC: RADNMMAIN 10:43
PROVIDERS: ATTEND Internal Medicine Clinical Cardiac Electrophysiology
DX: R07.89 Other chest pain (principal); R94.31 Abnormal electrocardiogram [ECG] [EKG]
CPT/HCPCS: 93017

== ENCOUNTER 2024-09-19 17:06 | Emergency (ER) | payer MEDICAID ==
--- NOTE | 2024-09-19 17:17 | ED ---
Altered Mental Status HPI - General Stated Complaint: Possible Dehydration/Confusion Time Seen by Provider: 09/19/24 17:09 Source: RN notes reviewed, old records reviewed Mode of arrival: ambulatory Limitations: altered mental status, physical limitation - History of Present Illness Initial Comments: This is a 39-year-old male presenting to the ER today patient presents today for evaluation of altered mental status and decreased levels of responsiveness. Patient has no complaints of headache no recent headaches, no complaints of neurological issue, patient states he had a normal night last night went to bed was up early did some yard work and then went to baseball practice for 3 hours, friends noticed throughout the course of baseball practice he became weaker and more altered, went to get food after baseball practice and patient became significantly altered with slowed slow response times and difficult to arouse. He is brought to the emergency room at this time Patient admits to recent change in job with increased physical labor at new job as well as doing outside yard work all day yesterday. This preceded work today again and then the 3-hour baseball practice MD Complaint: altered mental status, confusion, decreased responsiveness -: hour(s) Severity: severe Consistency of Symptoms: getting worse Context: unknown Associated Symptoms: nausea/vomiting, weakness Treatments Prior to Arrival: other pre-hospital medication (0) - Related Data Home Medications Medication Instructions Recorded Confirmed Ibuprofen [Motrin Ib] 800 mg PO Q8H PRN 03/21/21 03/21/21 Previous Rx's Medication Instructions Recorded Acetaminophen Tab [Tylenol] 650 mg PO Q6HR PRN tab 03/22/21 Baclofen [Lioresal] 10 mg PO TID #30 tablet 03/22/21 Omeprazole [PriLOSEC] 20 mg PO AC-BRKFST #30 cap 03/22/21 predniSONE [Deltasone] 40 mg PO DAILY #7 tab 03/22/21 Nystatin 100,000 Unit/gm Powd 1 applic TOPICAL BID #30 gram 07/15/23 [Mycostatin Powder] Allergies Allergy/AdvReac Type Severity Reaction Status Date / Time No Known Allergies Allergy Verified 03/21/21 17:51 Review of Systems ROS Statement: Those systems with pertinent positive or pertinent negative responses have been documented in the HPI. ROS Other: All systems not noted in ROS Statement are negative. Past Medical History Past Medical History: No Reported History Additional Past Medical History / Comment(s): L nephrectomy d/t football injury. History of Any Multi-Drug Resistant Organisms: None Reported Past Surgical History: Adenoidectomy, Appendectomy, Tonsillectomy Additional Past Surgical History / Comment(s): L nephrectomy, lap appy Past Anesthesia/Blood Transfusion Reactions: No Reported Reaction Past Psychological History: No Psychological Hx Reported Additional Psychological History / Comment(s): Pt resides with his spouse and one child. He is independent. Smoking Status: Never smoker Past Alcohol Use History: Occasional Past Drug Use History: None Reported - Past Family History Father Family Medical History: Cancer Additional Family Medical History / Comment(s): Prostate cancer. Paternal grandfather had prostate cancer. Mother Family Medical History: Hypertension General Exam Limitations: altered mental status General appearance: alert, in no apparent distress Head exam: Present: atraumatic, normocephalic, normal inspection Eye exam: Present: normal appearance, PERRL, EOMI. Absent: scleral icterus, conjunctival injection, periorbital swelling ENT exam: Present: normal exam, mucous membranes dry Neck exam: Present: normal inspection. Absent: tenderness, meningismus, lymphadenopathy Respiratory exam: Present: normal lung sounds bilaterally. Absent: respiratory distress, wheezes, rales, rhonchi, stridor Cardiovascular Exam: Present: regular rate, normal rhythm, normal heart sounds. Absent: systolic murmur, diastolic murmur, rubs, gallop, clicks GI/Abdominal exam: Present: soft, normal bowel sounds. Absent: distended, tenderness, guarding, rebound, rigid Extremities exam: Present: normal inspection, full ROM, normal capillary refill. Absent: tenderness, pedal edema, joint swelling, calf tenderness Back exam: Present: normal inspection Neurological exam: Present: alert, oriented X3, CN II-XII intact Psychiatric exam: Present: normal affect, normal mood Skin exam: Present: warm, dry, intact, normal color. Absent: rash Course Vital Signs 09/19/24 09/19/24 09/19/24 17:32 17:36 18:12 Temperature 98.8 F Pulse Rate 80 85 83 Respiratory 20 16 16 Rate Blood Pressure 132/88 132/88 138/84 O2 Sat by Pulse 97 96 99 Oximetry - Reevaluation(s) Reevaluation #1: 09/19/24 18:27 Medical records reviewed Reevaluation #2: 09/19/24 18:27 Patient symptoms dramatically improved throughout ER stay after 2 L of IV fluid Reevaluation #3: 09/19/24 18:27 Patient informed of results and questions answered Reevaluation #4: Was pt. sent in by a medical professional or institution (, [facility], [employer], urgent care, hospital, or [facility]...) When possible be specific @ -no Did you speak to anyone other than the patient for history (EMS, parent, family, police, friend...)? What history was obtained from this source @ -no Did you review nursing and triage notes (agree or disagree)? Why? @ -agree Are old charts reviewed (outside hosp., previous admission, EMS record, old EKG, old radiological studies, urgent care reports/EKG's, [facility] records)? Report findings @ -yes Differential Diagnosis (chest pain, altered mental status, abdominal pain women, abdominal pain men, vaginal bleeding, weakness, fever, dyspnea, syncope, headache, dizziness, GI bleed, back pain, seizure, CVA, palpatations, mental health, musculoskeletal)? @ -prior EKG interpreted by me (3pts min.). @ -yes X-rays interpreted by me (1pt min.). @ -yes negative for acute disease CT interpreted by me (1pt min.). @ -no U/S interpreted by me (1pt. min.). @ -no What testing was considered but not performed or refused? (CT, X-rays, U/S, labs)? Why? @ -none What meds were considered but not given or refused? Why? @ -none Did you discuss the management of the patient with other professionals (professionals i.e. , [facility], [employer], lab, RT, psych nurse, social services, history department chair, teacher, housing management officer, returned case inspector)? Give summary @ -no Was smoking cessation discussed for >3mins.? @ -no Was critical care preformed (if so, how long)? @ -no Were there social determinants of health that impacted care today? How? (Homelessness, low income, unemployed, alcoholism, drug addiction, transportation, low edu. Level, literacy, decrease access to med. care, fdc, rehab)? @ -none Was there de-escalation of care discussed even if they declined (Discuss DNR or withdrawal of care, Hospice)? DNR status @ -no What co-morbidities impacted this encounter? (DM, HTN, Smoking, COPD, CAD, Cancer, CVA, ARF, Chemo, Hep., AIDS, mental health diagnosis, sleep apnea, morbid obesity)? @ -none Was patient admitted / discharged? Hospital course, mention meds given and route, prescriptions, significant lab abnormalities, going to OR and other pertinent info. @ - Undiagnosed new problem with uncertain prognosis? @ -no Drug Therapy requiring intensive monitoring for toxicity (Heparin, Nitro, Insulin, Cardizem)? @ -no Were any procedures done? @ -no Diagnosis/symptom? @ - Acute, or Chronic, or Acute on Chronic? @ -Acute Uncomplicated (without systemic symptoms) or Complicated (systemic symptoms)? @ -Complicated Side effects of treatment? @ -no Exacerbation, Progression, or Severe Exacerbation? @ -exacerbation Poses a threat to life or bodily function? How? (Chest pain, [place], [place], pneumonia, PE, COPD, DKA, ARF, appy, cholecystitis, CVA, Diverticulitis, Homicidal, Suicidal, threat to staff... and all critical care pts) @ -yes Reevaluation #5: Differential Altered Mental Status: Hypoglycemia, DKA, hypercapnia, ETOH, overdose, CO poisoning, trauma, myxedema coma, HTN encephalopathy, infection, encephalitis, psychosis, intercranial hemorrhage, hepatic encephalopathy, meningitis, CVA, this is not meant to be an all-inclusive list Medical Decision Making - Medical Decision Making 39 male presents with acute altered mental status decrease in responsiveness. Slow onset throughout the course of the day ending up severe after baseball practice, patient presents to the ER slow to arouse difficult to arouse but improved dramatically throughout emergency department stay, currently at normal baseline mental status able to eat and drink will continue to drink fluids and water today and can be discharged home, acute kidney injury - Lab Data Result diagrams: 09/19/24 17:25 09/19/24 17:25 Lab Results 09/19/24 09/19/24 09/19/24 Range/Units 17:15 17:25 17:25 WBC 10.78 H (4.50-10.00) 10*3/uL RBC 5.17 (4.40-5.60) 10*6/uL Hgb 16.0 (13.0-17.0) g/dL Hct 43.7 (39.6-50.0) % MCV 84.5 (80.0-97.0) fL MCH 30.9 (27.0-32.0) pg MCHC 36.6 (32.0-37.0) g/dL Plt Count 261 (140-440) 10*3/uL MPV 10.9 (9.5-12.2) fL Immature Gran % (Auto) 0.2 % Neutrophils % 70.0 % Lymphocytes % 21.3 % Monocytes % 6.6 % Eosinophils % 1.4 % Basophils % 0.5 % Immature Gran # 0.02 (0.00-0.04) 10*3/uL Neutrophils # 7.55 (1.80-7.70) 10*3/uL Lymphocytes # 2.30 (0.90-5.00) 10*3/uL Monocytes # 0.71 (0.20-1.00) 10*3/uL Eosinophils # 0.15 (0.04-0.35) 10*3/uL Basophils # 0.05 (0.00-0.10) 10*3/uL PT 10.9 (10.0-12.5) sec INR 1.0 (<1.2) APTT 21.8 L (22.0-30.0) sec Sodium (137-145) mmol/L Potassium (3.5-5.1) mmol/L Chloride (98-107) mmol/L Carbon Dioxide (22-30) mmol/L Anion Gap mmol/L BUN (9-20) mg/dL Creatinine (0.66-1.25) mg/dL Est GFR (CKD-EPI)AfAm (>60 ml/min/1.73 sqM) Est GFR (CKD-EPI)NonAf (>60 ml/min/1.73 sqM) Glucose (74-99) mg/dL POC Glucose (mg/dL) 113 H (70-110) mg/dL POC Glu Environmental Engineer Scientist ID Sharmila Case Plasma Lactic Acid Demian (0.7-2.0) mmol/L Calcium (8.4-10.2) mg/dL Phosphorus (2.5-4.5) mg/dL Magnesium (1.6-2.3) mg/dL Total Bilirubin (0.2-1.3) mg/dL AST (17-59) U/L ALT (4-49) U/L Alkaline Phosphatase (38-126) U/L Creatine Kinase (55-170) U/L Troponin I (0.000-0.034) ng/mL Total Protein (6.3-8.2) g/dL Albumin (3.5-5.0) g/dL TSH (0.465-4.680) mIU/L Urine Color Urine Appearance (Clear) Urine pH (5.0-8.0) Ur Specific Sells (1.001-1.035) Urine Protein (Negative) Urine Glucose (UA) (Negative) Urine Ketones (Negative) Urine Blood (Negative) Urine Nitrite (Negative) Urine Bilirubin (Negative) Urine Urobilinogen (<2.0) mg/dL Ur Leukocyte Esterase (Negative) Urine WBC (0-5) /hpf Urine Mucus (None) /hpf 09/19/24 09/19/24 09/19/24 Range/Units 17:25 17:25 17:25 WBC (4.50-10.00) 10*3/uL RBC (4.40-5.60) 10*6/uL Hgb (13.0-17.0) g/dL Hct (39.6-50.0) % MCV (80.0-97.0) fL MCH (27.0-32.0) pg MCHC (32.0-37.0) g/dL Plt Count (140-440) 10*3/uL MPV (9.5-12.2) fL Immature Gran % (Auto) % Neutrophils % % Lymphocytes % % Monocytes % % Eosinophils % % Basophils % % Immature Gran # (0.00-0.04) 10*3/uL Neutrophils # (1.80-7.70) 10*3/uL Lymphocytes # (0.90-5.00) 10*3/uL Monocytes # (0.20-1.00) 10*3/uL Eosinophils # (0.04-0.35) 10*3/uL Basophils # (0.00-0.10) 10*3/uL PT (10.0-12.5) sec INR (<1.2) APTT (22.0-30.0) sec Sodium 137 (137-145) mmol/L Potassium 4.4 (3.5-5.1) mmol/L Chloride 103 (98-107) mmol/L Carbon Dioxide 23 (22-30) mmol/L Anion Gap 11 mmol/L BUN 18 (9-20) mg/dL Creatinine 1.45 H (0.66-1.25) mg/dL Est GFR (CKD-EPI)AfAm 71 (>60 ml/min/1.73 sqM) Est GFR (CKD-EPI)NonAf 61 (>60 ml/min/1.73 sqM) Glucose 122 H (74-99) mg/dL POC Glucose (mg/dL) (70-110) mg/dL POC Glu Environmental Engineer Scientist ID Plasma Lactic Acid Demian 1.0 (0.7-2.0) mmol/L Calcium 10.4 H (8.4-10.2) mg/dL Phosphorus 3.1 (2.5-4.5) mg/dL Magnesium 1.6 (1.6-2.3) mg/dL Total Bilirubin 2.0 H (0.2-1.3) mg/dL AST 36 (17-59) U/L ALT 63 H (4-49) U/L Alkaline Phosphatase 77 (38-126) U/L Creatine Kinase 152 (55-170) U/L Troponin I <0.012 (0.000-0.034) ng/mL Total Protein 8.4 H (6.3-8.2) g/dL Albumin 5.1 H (3.5-5.0) g/dL TSH 2.310 (0.465-4.680) mIU/L Urine Color Urine Appearance (Clear) Urine pH (5.0-8.0) Ur Specific Sells (1.001-1.035) Urine Protein (Negative) Urine Glucose (UA) (Negative) Urine Ketones (Negative) Urine Blood (Negative) Urine Nitrite (Negative) Urine Bilirubin (Negative) Urine Urobilinogen (<2.0) mg/dL Ur Leukocyte Esterase (Negative) Urine WBC (0-5) /hpf Urine Mucus (None) /hpf 09/19/24 Range/Units 18:01 WBC (4.50-10.00) 10*3/uL RBC (4.40-5.60) 10*6/uL Hgb (13.0-17.0) g/dL Hct (39.6-50.0) % MCV (80.0-97.0) fL MCH (27.0-32.0) pg MCHC (32.0-37.0) g/dL Plt Count (140-440) 10*3/uL MPV (9.5-12.2) fL Immature Gran % (Auto) % Neutrophils % % Lymphocytes % % Monocytes % % Eosinophils % % Basophils % % Immature Gran # (0.00-0.04) 10*3/uL Neutrophils # (1.80-7.70) 10*3/uL Lymphocytes # (0.90-5.00) 10*3/uL Monocytes # (0.20-1.00) 10*3/uL Eosinophils # (0.04-0.35) 10*3/uL Basophils # (0.00-0.10) 10*3/uL PT (10.0-12.5) sec INR (<1.2) APTT (22.0-30.0) sec Sodium (137-145) mmol/L Potassium (3.5-5.1) mmol/L Chloride (98-107) mmol/L Carbon Dioxide (22-30) mmol/L Anion Gap mmol/L BUN (9-20) mg/dL Creatinine (0.66-1.25) mg/dL Est GFR (CKD-EPI)AfAm (>60 ml/min/1.73 sqM) Est GFR (CKD-EPI)NonAf (>60 ml/min/1.73 sqM) Glucose (74-99) mg/dL POC Glucose (mg/dL) (70-110) mg/dL POC Glu Environmental Engineer Scientist ID Plasma Lactic Acid Demian (0.7-2.0) mmol/L Calcium (8.4-10.2) mg/dL Phosphorus (2.5-4.5) mg/dL Magnesium (1.6-2.3) mg/dL Total Bilirubin (0.2-1.3) mg/dL AST (17-59) U/L ALT (4-49) U/L Alkaline Phosphatase (38-126) U/L Creatine Kinase (55-170) U/L Troponin I (0.000-0.034) ng/mL Total Protein (6.3-8.2) g/dL Albumin (3.5-5.0) g/dL TSH (0.465-4.680) mIU/L Urine Color Yellow Urine Appearance Clear (Clear) Urine pH 6.0 (5.0-8.0) Ur Specific Sells 1.025 (1.001-1.035) Urine Protein 2+ H (Negative) Urine Glucose (UA) Negative (Negative) Urine Ketones Trace H (Negative) Urine Blood Negative (Negative) Urine Nitrite Negative (Negative) Urine Bilirubin Negative (Negative) Urine Urobilinogen <2.0 (<2.0) mg/dL Ur Leukocyte Esterase Negative (Negative) Urine WBC 2 (0-5) /hpf Urine Mucus Rare H (None) /hpf - EKG Data -: EKG Interpreted by Me (EKG is sinus 80 PA 149 QRS 93 QTc 381 nonspecific T wave inversion biphasic) Disposition Clinical Impression: Altered mental status, Dehydration, Heat stroke, KATHERINE (acute kidney injury) Disposition: HOME SELF-CARE Condition: Good Instructions (If sedation given, give patient instructions): Dehydration (ED), Heatstroke (ED) Is patient prescribed a controlled substance at d/c from ED?: No Referrals: Nonstaff,Physician [REFERRING] - 1-2 days Time of Disposition: 19:00
[2024-09-19 17:24] LABS: Glucose,Whole Blood 113 mg/dL (70-110)
[2024-09-19] MEDS: ONDANSETRON 4 MG/2 ML VIAL IVP STA (17:29)
[2024-09-19] MEDS: SODIUM CHLORIDE 0.9% 1,000 ML IV SCH (17:30)
[2024-09-19 17:31] LABS: Basophils # (A) 0.05 10*3/uL (0.00-0.10); Basophils % (A) 0.5 %; Eosinophils # (A) 0.15 10*3/uL (0.04-0.35); Eosinophils % (A) 1.4 %; HCT 43.7 % (39.6-50.0); Lymphocytes % (A) 21.3 %; MCH 30.9 pg (27.0-32.0); MCHC 36.6 g/dL (32.0-37.0); MCV 84.5 fL (80.0-97.0); Mean Platelet Volume 10.9 fL (9.5-12.2); Monocytes # (A) 0.71 10*3/uL (0.20-1.00); Monocytes % (A) 6.6 %; Neutrophils # (A) 7.55 10*3/uL (1.80-7.70); Platelet Count 261 10*3/uL (140-440); RBC 5.17 10*6/uL (4.40-5.60); RDW 11.8 % (11.5-14.5); WBC 10.78 10*3/uL (4.50-10.00)
[2024-09-19 17:36] VITALS: TEMP 98.8
[2024-09-19 17:42] LABS: ALT 63 U/L (4-49); AST 36 U/L (17-59); African American GFR (CKD) 71 (>60 ml/min/1.73 sqM); Albumin 5.1 g/dL (3.5-5.0); Alkaline Phosphatase 77 U/L (38-126); Anion Gap 11 mmol/L; Blood Urea Nitrogen 18 mg/dL (9-20); Calcium 10.4 mg/dL (8.4-10.2); Carbon Dioxide 23 mmol/L (22-30); Chloride 103 mmol/L (98-107); Creatine Kinase 152 U/L (55-170); Glucose 122 mg/dL (74-99); Magnesium 1.6 mg/dL (1.6-2.3); Non-African American GFR(CKD) 61 (>60 ml/min/1.73 sqM); Phosphorus 3.1 mg/dL (2.5-4.5); Potassium 4.4 mmol/L (3.5-5.1); Sodium 137 mmol/L (137-145); Total Protein 8.4 g/dL (6.3-8.2)
[2024-09-19 17:55] LABS: Prothrombin Time 10.9 sec (10.0-12.5)
[2024-09-19 17:59] LABS: Partial Thromboplastin Time 21.8 sec (22.0-30.0)
[2024-09-19 18:13] LABS: Appearance,Urine Clear (Clear); Bilirubin,Urine Negative (Negative); Blood,Urine Negative (Negative); Color,Urine Yellow; Glucose,Urine (UA) Negative (Negative); Ketones,Urine Trace (Negative); Leukocyte Esterase,Urine Negative (Negative); Mucus,Urine Rare /hpf; Nitrite,Urine Negative (Negative); Protein,Urine 2+ (Negative); Specific Gravity,Urine 1.025 (1.001-1.035); Urobilinogen,Urine <2.0 mg/dL (<2.0); WBC,Urine 2 /hpf (0-5)
[2024-09-19 19:18] VITALS: BP 125/89; PULSE 92; RESP 18
== END 2024-09-19 19:18 | disposition home or self-care (01) ==
LOC: EC 17:06
DX: T67.01XA Heatstroke and sunstroke, initial encounter (principal); R41.82 Altered mental status, unspecified; E86.0 Dehydration; N17.9 Acute kidney failure, unspecified
CPT/HCPCS: 36415; 93005; 80053; 82550; 83605; 83735; 84100; 84443; 84484; 85025; 85610; 85730; 81001; 99285; 96374; 96361; J2405